=== PATIENT | female | born 1985 | race Caucasian/White ===

== ENCOUNTER 2016-12-03 15:40 | Emergency (ER) | payer BC ==
[2016-12-03 16:01] VITALS: BP 137/89
[2016-12-03] MEDS ORDERED: Tetan/Diph/Pertus SYR(Tdap)* 0.5 ML SYR(BOOSTRIX) use SYR IM ONE (16:38)
--- NOTE | 2016-12-03 16:38 | UC ---
Bite Injury/Animal HPI - HPI Summary HPI Summary: cat bit left pointer finger, now there is redness and swelling. tip of finger is numb, unknown last tetanus. 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 Seen by Provider: 12/03/16 16:30 Hx Obtained From: Patient Hx Last Menstrual Period: 11/15/16 ?: No Severity Currently: Moderate Severity Initially: Mild Pain Intensity: 4 Pain Scale Used: 0-10 Numeric Onset/Duration: Sudden Onset, Lasting Days Type of Bite: Pet Has Animal Been Immunized?: Yes Character: Puncture Aggravating Factor(s): Nothing Alleviating Factor(s): Nothing Associated Signs And Symptoms: Positive: Erythema, Swelling Animal Available for Observation: Yes - Risk Factors Infection/Sepsis Risk Factors: Negative - Allergies/Home Medications Allergies/Adverse Reactions: Allergies Allergy/AdvReac Type Severity Reaction Status Date / Time Tramadol AdvReac Nausea And Verified 12/03/16 15:55 Vomiting PMH/Surg Hx/FS Hx/Imm Hx Previously Healthy: Yes - Surgical History Surgical History: Yes Surgery Procedure, Year, and Place: 2 c-sections - Family History Known Family History: Positive: Hypertension, Diabetes, Other - colon ca - Social History Alcohol Use: Rare Substance Use Type: None Smoking Status (MU): Former Smoker When Did the Patient Quit Smoking/Using Tobacco: 1999 - Immunization History Most Recent Tetanus Shot: unknown Review of Systems Constitutional: Negative Skin: Other - puncture on left pointer finger Eyes: Negative ENT: Negative Respiratory: Negative Cardiovascular: Negative Gastrointestinal: Negative Genitourinary: Negative Motor: Negative Neurovascular: Negative Musculoskeletal: Negative Neurological: Negative Psychological: Negative All Other Systems Reviewed And Are Negative: Yes Physical Exam Triage Information Reviewed: Yes Appearance: Well-Appearing, Well-Nourished, Pain Distress Vital Signs: Initial Vital Signs Temp 98.3 F 12/03/16 15:56 Pulse 90 12/03/16 15:56 Resp 16 12/03/16 15:56 BP 137/89 12/03/16 15:56 Pulse Ox 100 12/03/16 15:56 Vital Signs Reviewed: Yes Eye Exam: Normal Eyes: Positive: Conjunctiva Clear ENT Exam: Normal ENT: Positive: Hearing grossly normal, Pharynx normal, TMs normal Dental Exam: Normal Neck exam: Normal Neck: Positive: Supple, Nontender, No Lymphadenopathy Respiratory Exam: Normal Respiratory: Positive: Chest non-tender, Lungs clear, Normal breath sounds Cardiovascular Exam: Normal Cardiovascular: Positive: RRR, No Murmur, Pulses Normal Abdominal Exam: Normal Abdomen Description: Positive: Nontender, No Organomegaly, Soft Musculoskeletal: Positive: Strength Intact, ROM Intact, Edema @ Neurological Exam: Normal Neurological: Positive: Alert, Muscle Tone Normal Psychological Exam: Normal Skin: Positive: significant lesion(s) - 3 puncture wounds from bite, redness and swelling along entire finger Bite Injury Course/Dx - Course Course Of Treatment: hx obtained, medications reviewed, exam performed, tetanus given, medications prescribed. - Differential Dx/Diagnosis Differential Diagnosis/HQI/PQRI: Laceration, Puncture, Superficial Infection, Deep Space Infection Provider Diagnoses: cellulitis. cat bite. finger numbness Discharge - Discharge Plan Condition: Stable Disposition: HOME Prescriptions: Amoxicillin/Clavulanate TAB* [Augmentin TAB 875*] 875 mg PO BID #20 tab Patient Education Materials: Animal Bite (ED) Additional Instructions: Take the medication as prescribed. Increase fluid intake, warm soaks daily to aide circulation. follow up in the ER with any fever, increase in swelling or redness, red streak up the arm.
== END 2016-12-03 16:50 | disposition home or self-care (01) ==
LOC: UCCORT 15:40
DX: S61.231A Puncture wound without foreign body of left index finger without damage to nail, initial encounter (principal); L03.012 Cellulitis of left finger; W55.01XA Bitten by cat, initial encounter; Y93.9 Activity, unspecified; Y92.9 Unspecified place or not applicable; R20.0 Anesthesia of skin; Z23 Encounter for immunization; Z88.6 Allergy status to analgesic agent; Z87.891 Personal history of nicotine dependence
CPT/HCPCS: 90471; 90715; 99212; G0463

== ENCOUNTER 2018-01-02 16:05 | Emergency (ER) | payer BC ==
[2018-01-02 17:35] VITALS: BP 142/88
--- NOTE | 2018-01-02 18:20 | UC ---
UC General HPI - HPI Summary HPI Summary: PT IS C/O SINUS CONGESTION WITH YELLOW DRAINAGE AND SINUS PAIN FOR OVER A WEEK. SHE IS SELF TXING WITH MUCINEX AND ALLERGY MEDICATION WITH NO RELIEF. SHE NOTES A HX OF SINUS INFECTIONS THAT WERE THE SAME. - History of Current Complaint Chief Complaint: UCRespiratory Stated Complaint: SINUSES Time Seen by Provider: 01/02/18 18:05 Hx Obtained From: Patient Hx Last Menstrual Period: 12/07/17 Onset/Duration: Gradual Onset Timing: Constant Pain Intensity: 5 Alleviating: NOTHING Associated Signs & Symptoms: Positive: Headache. Negative: Cough, Fever Similar Episode/Dx as: SINUSITIS - Allergy/Home Medications Allergies/Adverse Reactions: Allergies Allergy/AdvReac Type Severity Reaction Status Date / Time tramadol Allergy Nausea And Verified 01/02/18 17:29 Vomiting PMH/Surg Hx/FS Hx/Imm Hx - Additional Past Medical History Additional PMH: SINUSITIS - Surgical History Surgical History: Yes Surgery Procedure, Year, and Place: 2 c-sections - Family History Known Family History: Positive: Hypertension, Diabetes, Other - colon ca - Social History Occupation: Employed Full-time Alcohol Use: Occasionally Substance Use Type: None Smoking Status (MU): Former Smoker When Did the Patient Quit Smoking/Using Tobacco: 1999 - Immunization History Most Recent Tetanus Shot: unknown Vaccination Up to Date: Yes Review of Systems Constitutional: Negative Skin: Negative Eyes: Negative ENT: Nasal Discharge, Sinus Congestion, Sinus Pain/Tenderness Respiratory: Negative Cardiovascular: Negative Gastrointestinal: Negative Genitourinary: Negative Motor: Negative Neurovascular: Negative Musculoskeletal: Negative Neurological: Negative Psychological: Negative Is Patient Immunocompromised?: No All Other Systems Reviewed And Are Negative: Yes Physical Exam Triage Information Reviewed: Yes Appearance: Well-Appearing Vital Signs: Initial Vital Signs Temp 98.5 F 01/02/18 17:29 Pulse 78 01/02/18 17:29 Resp 16 01/02/18 17:29 BP 142/88 01/02/18 17:29 Pulse Ox 100 01/02/18 17:29 Vital Signs Reviewed: Yes Eye Exam: Normal ENT: Positive: Pharynx normal, Nasal congestion, TMs normal, Sinus tenderness Respiratory: Positive: Chest non-tender, Lungs clear, Normal breath sounds Cardiovascular: Positive: RRR, No Murmur, Pulses Normal Abdomen Description: Positive: Nontender, No Organomegaly, Soft Bowel Sounds: Positive: Present Neurological: Positive: Alert Psychological: Positive: Age Appropriate Behavior Skin Exam: Normal Course/Dx - Course Course Of Treatment: exam is c/w sinusitis. will tx with augmentin plus flonase otc suggested as well. bp mildly elevated at visit. no hx of htn recheck on f/u. - Differential Dx - Multi-Symptom Provider Diagnoses: sinusitis Discharge - Discharge Plan Condition: Stable Disposition: HOME Prescriptions: Amoxicillin/Clavulanate TAB* [Augmentin TAB 875*] 875 mg PO BID 10 Days #20 tab Patient Education Materials: Sinusitis (ED) Referrals: EFRAIN Henriquez [Primary Care Provider] - 7 Days Additional Instructions: START FLONASE OVER THE COUNTER PER LABEL
== END 2018-01-02 18:26 | disposition home or self-care (01) ==
LOC: UCCORT 16:05
DX: J32.9 Chronic sinusitis, unspecified (principal); Z87.891 Personal history of nicotine dependence
CPT/HCPCS: 99212; G0463

== ENCOUNTER 2019-10-12 09:09 | Emergency (ER) | payer BC ==
[2019-10-12 09:35] VITALS: BP 132/88
--- NOTE | 2019-10-12 09:51 | UC ---
Respiratory Complaint HPI - HPI Summary HPI Summary: 34 year old, 18 week female presents with a complaint of left ear ache , congestion, sore throat, hoarse voice, and productive cough for three days. Noted a low grade temperature of 99, no n/v/d. - History of Current Complaint Chief Complaint: UCRespiratory Stated Complaint: SORE THROAT COUGH RUNNY NOSE CONGESTION Time Seen by Provider: 10/12/19 09:28 Hx Last Menstrual Period: 12/07/17 Pain Intensity: 5 - Allergies/Home Medications Allergies/Adverse Reactions: Allergies Allergy/AdvReac Type Severity Reaction Status Date / Time tramadol AdvReac Nausea And Verified 10/12/19 09:31 Vomiting Home Medications: Home Medications Guaifenesin/Pseudoephedrne HCl [Mucinex D] 1 tab PO Q12H PRN 10/12/19 [History Confirmed 10/12/19] Vitamin TAB* 1 tab PO DAILY 10/12/19 [History Confirmed 10/12/19] PMH/Surg Hx/FS Hx/Imm Hx Previously Healthy: Yes - - Surgical History Surgical History: Yes Surgery Procedure, Year, and Place: C-Sections, 2010 2006, [place] - Family History Known Family History: Positive: Hypertension, Diabetes, Other - colon ca - Social History Alcohol Use: None Substance Use Type: None Smoking Status (MU): Former Smoker Length of Time of Smoking/Using Tobacco: Six Months in High School When Did the Patient Quit Smoking/Using Tobacco: 1999 - Immunization History Most Recent Tetanus Shot: 12/03/16 Vaccination Up to Date: Yes Review of Systems All Other Systems Reviewed And Are Negative: Yes Constitutional: Negative: Fever, Chills, Fatigue Skin: Negative: Rash, Bruising Eyes: Positive: Negative ENT: Positive: Sore Throat, Ear Ache - left ear pain, Nasal Discharge. Negative : Sinus Congestion, Sinus Pain/Tenderness Respiratory: Negative: Shortness Of Breath, Cough Cardiovascular: Negative: Palpitations, Chest Pain Gastrointestinal: Negative: Vomiting, Diarrhea, Nausea Genitourinary: Negative: Dysuria, Hematuria, Frequency, Urgency Motor: Positive: Negative Neurovascular: Positive: Negative Musculoskeletal: Positive: Negative Neurological: Positive: Negative Psychological: Positive: Negative Is Patient Immunocompromised?: No Physical Exam Triage Information Reviewed: Yes Appearance: Well-Appearing, No Pain Distress, Well-Nourished Vital Signs: Initial Vital Signs Temp 98.6 F 10/12/19 09:29 Pulse 96 10/12/19 09:29 Resp 16 10/12/19 09:29 BP 132/88 10/12/19 09:29 Pulse Ox 100 10/12/19 09:29 Eye Exam: Normal ENT: Positive: Normal ENT inspection, Pharynx normal, TMs normal. Negative: Tonsillar swelling, Tonsillar exudate, Sinus tenderness Neck: Positive: Supple, Nontender, No Lymphadenopathy Respiratory: Positive: Chest non-tender, Lungs clear, Normal breath sounds. Negative: Crackles, Rhonchi, Wheezing Cardiovascular: Positive: RRR, No Murmur Abdominal Exam: Normal - normal abdomen Abdomen Description: Positive: Nontender, Soft Musculoskeletal Exam: Normal Neurological Exam: Normal Psychological Exam: Normal Skin: Negative: Rashes Respiratory Course/Dx - Course Course Of Treatment: Negative rapid strep with normal appearing pharynx. - Differential Dx/Diagnosis Provider Diagnosis: Pharyngitis Discharge ED - Sign-Out/Discharge Documenting (check all that apply): Patient Departure All imaging exams completed and their final reports reviewed: No Studies - Discharge Plan Condition: Stable Disposition: HOME Patient Education Materials: Pharyngitis (ED) Referrals: No Primary Care Phys,NOPCP [Primary Care Provider] - Additional Instructions: Drink plenty of fluids, salt water gargles as needed for sore throat. Tylenol over the counter as needed for pain. If your symptoms persist or worsen, follow- up with your primary care physician. - Billing Disposition and Condition Condition: STABLE Disposition: Home
== END 2019-10-12 10:09 | disposition home or self-care (01) ==
LOC: UCCORT 09:09
DX: O99.512 Diseases of the respiratory system complicating pregnancy, second trimester (principal); R09.89 Other specified symptoms and signs involving the circulatory and respiratory systems; H92.02 Otalgia, left ear; Z3A.18 18 weeks gestation of pregnancy; Z88.5 Allergy status to narcotic agent; Z87.891 Personal history of nicotine dependence
CPT/HCPCS: 87651; 99211; G0463